=== PATIENT | male | born 1970 | race African-American/Black ===

== ENCOUNTER 2017-04-05 12:34 | Emergency (ER) | payer SELFPAY | END 2017-04-05 14:53 | disposition home or self-care (01) | LOC: D.ER 12:34 | DX: M25.561 Pain in right knee (principal); M25.461 Effusion, right knee ==

== ENCOUNTER 2019-10-22 06:45 | Day surgery (SDC) | payer BC ==
[2019-10-18 13:53] LABS: HEMATOCRIT 44.8 % (42.0-54.0); HEMOGLOBIN 14.4 g/dL (13.5-17.5); MCH 28.5 pg (26.0-34.0); MCHC 32.1 g/dL (31.0-37.0); MCV 88.5 fL (80.0-100.0); MEAN PLATELET VOLUME 8.5 fL (7.4-10.4); PLATELET COUNT 244 10x3/uL (130-400); RBC 5.06 10x6/uL (4.20-6.10); RDW 13.1 % (11.5-14.5); WBC 3.6 10x3/uL (4.8-10.8)
[2019-10-18 14:11] LABS: CALC OSMOLALITY 279 mosm/kg (275-300); CALCIUM 9.1 mg/dL (8.5-10.1); CARBON DIOXIDE 30.3 mmol/L (21.0-32.0); CHLORIDE - SERUM 105 mmol/L (98-107); CREATININE - SERUM 1.1 mg/dL (0.6-1.3); GLUCOSE 94 mg/dL (74-106); POTASSIUM - SERUM 4.4 mmol/L (3.5-5.1); SODIUM 141 mmol/L (136-145); UREA NITROGEN 10 mg/dL (7-18); eGFR NON AFRICAN AMERICAN 75 mL/min (90-120)
[2019-10-18 14:12] LABS: EOSINOPHILS 7 % (0-7); LYMPHOCYTES 53 % (15-50); NEUTROPHILS 37 % (40-80); PLATELET ESTIMATE NORMAL
[~2019-10-22] VITALS: Ht 182.9 cm; Wt 122.9 kg
[2019-10-22 08:04] VITALS: BP 116/80; Ht 182.9 cm; Wt 122.9 kg
[2019-10-22] MEDS ORDERED: HYDROCODON-ACE1 EA10 PO (10:25)
--- NOTE | 2019-10-25 08:00 | OP ---
PATIENT NAME: SCOTT ALVAREZ MEDICAL RECORD: [id number] :70 LOCATION:[facility] ADMISSION DATE: SURGEON: TOMASZ POLANCO MD DATE OF OPERATION: 10/22/2019 PREOPERATIVE DIAGNOSES: 1. Posterior neck lipoma. 2. Back skin tag. 3. Obesity with a BMI of 37. POSTOPERATIVE DIAGNOSES: 1. Posterior neck lipoma. 2. Back skin tag. 3. Obesity with a BMI of 37. PROCEDURES: 1. Excision of 5 cm posterior neck lipoma. 2. Excision of back skin tag. SURGEON: Tomasz Polanco MD REPORT OF PROCEDURE: The patient's back and neck were all prepped and draped in sterile fashion. The patient had a skin tag on the left side of the back towards the lower aspect of the back. This was taken off down to the flat surface of the skin using electrocautery. I bovied 1 time into the base of this to stop any bleeding and we then approached the patient's posterior neck. At the base of the neck, there was a large hump of tissue. A transverse incision was made overlying this 5 cm in length using electrocautery, came through the subcutaneous tissues. We eventually encountered a collection of fatty tissue consistent with a lipoma. This lipoma had many fingerlike projections extending out of it. For this reason, I tried to dissect these free, but they were very tightly adherent to the surrounding tissues. I went ahead and just took out this core of tissue around the lipoma including the surrounding subcutaneous fat. Once I had this excised, then I irrigated out the wound with normal saline and any bleeding that was found was treated with electrocautery. The subcutaneous tissues were reapproximated with interrupted 3-0 Vicryls and the skin was closed with running subcutaneous 5-0 Monocryl. A 10 mL of 0.25% Marcaine with epinephrine was infused into the surrounding tissues and the wound was dressed appropriately. COMPLICATIONS: None. CONDITION: Stable. ANESTHESIA: General endotracheal and local. BLOOD LOSS: Minimal. NTS:[id number] Voice Confirmation ID: [id number] DOCUMENT ID: [id number] OPERATIVE REPORT [id number] SCOTT ALVAREZ TOMASZ POLANCO MD at 0800 CC: HANNA JARRELL [id number] DICTATION DATE: 10/22/19 102 CALL SPECIALIST: 08/04/20 [id number] [facility] [place] 10/22/19 [id number] [place] [address]
== END 2019-10-22 12:10 | disposition home or self-care (01) ==
LOC: D.OPS 06:45
PROVIDERS: ATTEND Surgery
DX: D17.0 Benign lipomatous neoplasm of skin and subcutaneous tissue of head, face and neck (principal); L91.8 Other hypertrophic disorders of the skin; E66.9 Obesity, unspecified; Z68.37 Body mass index [BMI] 37.0-37.9, adult